=== PATIENT | female | born 1935 | race Caucasian/White ===

== ENCOUNTER 2017-02-06 09:22 | Emergency (ER) | payer MEDICARE, OTHER ==
[~2017-02-06] VITALS: Ht 157.5 cm; Wt 52.0 kg
--- NOTE | 2017-02-06 09:21 | ED.REPORT ---
HPI-Cardiac Arrest Date of Service Feb 06, 2017 ED Provider: Dr. Hewitt Pt is a 81 y/o female w/ a hx of bipolar, Alzheimer's, hyperlipidemia, presenting to the ED via EMS due to cardiac arrest which occurred about 30 minutes prior to arrival. The patient was given a breakfast which included peanut butter and apparently was found down and unresponsive 10-15 minutes later. EMS was called by her when he noticed that she was gagging on the peanut butter. Medics arrived to find her unresponsive and in PEA cardiac arrest and CPR was started. She received 10-12 minutes of CPR and 2 rounds of Epinephrine with return of circulation with heart rate about 120 bpm. She was intubated successfully on route without use of any paralytic or sedative medication. During the intubation, a considerable amount of peanut butter was suctioned from trachea. She arrives to the ED intubated and in critical condition. Health care directive obtained about 10 minutes after arrival indicates: DNR and DNI IF "I am diagnosed to be in a terminal condition or in a permanent unconscious condition". Nursing Notes Stated Complaint: POST CARDIAC ARREST Nursing Notes Reviewed: Yes Allergies: Coded Allergies: No Known Allergies (Verified , 08/07/16) Scheduled ([Vitamin D]) 1,000 IU PO DAILY Estradiol-Expunged Drug, Do Not Renew! (Estrace Vaginal-Expunged Drug, Do Not Renew!) 1 Gm Cr 1 GM PV 2 TIMES A WEEK Normal dose: 2-4 Gms Vaginally HS Ferrous Sulfate (Iron) 325 Mg Tablet 65 MG PO DAILY Iloperidone (Fanapt) 6 Mg Tablet 6 MG PO DAILY AT HS Levothyroxine (Levothyroxine) 112 Mcg Tablet 112 MCG PO DAILY MELATONIN/PYRIDOXINE-Expunged Drug, Do Not Re (MELATONIN-Expunged Drug, Do Not Renew!) 1 Each Tab.mphase 1 EACH PO HS MULTIVITAMIN-Expunged Drug, Do Not Renew! (MULTI VITAMIN -Expunged Drug, Do Not Renew!) 1 Each Tablet 1 EACH PO DAILY OXcarbazepine-Expunged Drug, Do Not Renew! (Trileptal-Expunged Drug, Do Not Renew!) 300 Mg Tablet 900 MG PO PM Omeprazole-Expunged Drug, Do Not Renew! (Omeprazole-Expunged Drug, Do Not Renew! ) 20 Mg Capcr 20 MG PO DAILY Ospemifene (Osphena) 60 Mg Tablet 60 MG PO DAILY Oxcarbazepine (Trileptal) 600 Mg Tablet 300 MG PO AM Quetiapine-Expunged Drug, Do Not Renew! (Seroquel XR-Expunged Drug, Do Not Renew !) 300 Mg Tab.sr.24h 750 MG PO HS Scheduled PRN Lorazepam-Expunged Drug, Do Not Renew! (Lorazepam-Expunged Drug, Do Not Renew!) 1 Mg Tablet 1 MG PO BID PRN PRN Naproxen Sod-Expunged Drug, Do Not Renew!! (Aleve-Expunged Drug,Do Not Renew!) 220 Mg Capsule 220 MG PO Q12 PRN PRN Miscellaneous Medications Ferrous Sulfate (Iron) 15 Mg Iron (75 Mg)/Ml Drops 15 MG PO General Time Seen by Provider: 09:22 Chief Complaint Respiratory arrest Down Time Prior to EMS: 1 - 20 min Total Time Arrest to Arrival: 21 - 40 min Context: Resuscitation: Initial rhythm PEA Hx Obtained From: EMS Unable to Obtain Hx: Patient condition Arrived By: Ambulance Onset Occurred: 16 - 30 minutes ago Symptom Duration: 1 - 15 minutes Progression Since Onset: Constant Past Medical History Past Medical History Hypothyroidism Hyperlipidemia GERD Bipolar type II Alzheimer's disease Family History Noncontributory Smoking History Unknown if Ever Smoker Social History Other Social History: Good social support, , Local resident Ambulatory Status Independent Review of Systems Unable to Obtain ROS Patient condition, Intubated Physical Exam Initial Vital Signs Vital Signs (First) Date Time Temp Pulse Resp B/P Pulse Ox O2 Delivery O2 Flow Rate FiO2 02/06/17 09:25 34.9 103 18 77/41 99 Mechanical Ventilator ET Tube Initial VS: Reviewed, Vital signs abnormal Respiratory / Chest: Atraumatic, Breath sounds = bilat Intubated and on ventilator Cardiovascular: Regular rhythm, Heart sounds NL, No gallop, No murmurs, No rubs Heart Rate / Rhythm: Positive: Tachycardia Abdomen: Atraumatic, Soft Head / Eyes: Atraumatic, Normocephalic Pupils fixed at 4 mm bilaterally ENT: Atraumatic, Airway patent Neck: Atraumatic, No swelling Upper Extremity / MS: Atraumatic, Inspection NL Lower Extremity / Pelvis / MS: Atraumatic, Inspection NL Skin: Atraumatic, No rash, Dry NEURO: Unresponsive with GCS of 3 PSYCH: Unable to assess Interpretation & Diagnostics Lab Results Interpretation Result Diagram: 02/06/17 0930 02/06/17 0930 Test 02/06/17 09:30 White Blood Count 21.3th/mm3 (3.8-10.1) Red Blood Count 3.12mil/mm3 (3.90-5.20) Hemoglobin 10.0g/dL (12.0-15.6) Hematocrit 30.6% (35.0-46.0) Mean Corpuscular Volume 98.1fL (81-100) Mean Corpuscular Hemoglobin 32.1pg (27.0-35.0) Mean Corpuscular Hemoglobin Concent 32.7% (32.0-37.0) Red Cell Distribution Width 12.7% (12.3-15.4) Platelet Count 327bil/L (150-400) Neutrophils (%) (Auto) 64.2% (40-74) Lymphocytes (%) (Auto) 26.3% (14-46) Monocytes (%) (Auto) 7.0% (4-12) Eosinophils (%) (Auto) 0.3% (0-5) Basophils (%) (Auto) 0.2% (0-3) Sodium Level 131mEq/L (134-144) Potassium Level 3.6mEq/L (3.5-5.2) Chloride Level 93mEq/L (97-108) Carbon Dioxide Level 17mmol/L (18-29) Blood Urea Nitrogen 20mg/dL (8-27) Creatinine 1.30mg/dL (0.57-1.00) Estimat Glomerular Filtration Rate 57mL/min (>59) Glucose Level 211mg/dL (60-99) Calcium Level 8.3mg/dL (8.5-10.1) Magnesium Level 2.4mg/dL (1.6-2.6) Total Bilirubin 0.4mg/dL (0.0-1.2) Aspartate Amino Transf (AST/SGOT) 39U/L (0-50) Alanine Aminotransferase (ALT/SGPT) 27U/L (0-32) Alkaline Phosphatase 119U/L (25-165) Troponin T 0.010ug/L (0.0-0.011) Total Protein 6.2g/dL (6.4-8.4) Albumin 3.0g/dL (3.4-5.0) ECG Interpretation ECG Interpretation: Sinus rhythm rate 93 Single PVC Low voltage No prior EKG available for comparison Time: 09:48 Interpreted by: ED physician Normal ECG Interpretation: No acute ischemic changes X-Ray Chest Interpretation Chest Xray Interpretation: FINDINGS: Surgical changes and devices: Transcutaneous cardiac pacer noted. NG tube traverses the NG junction. ET tube projects approximately 5.1 cm superior to the julio. Lungs and pleura: No pleural effusions or pneumothorax. Opacity noted in the medial aspect of the right upper lobe. Mediastinum: Mediastinal contours appear normal. Heart size is normal. Bones and chest wall: No suspicious bony lesions. Overlying soft tissues appear unremarkable. IMPRESSION: 1. Tubes and lines as described above. 2. Masslike opacity in the right upper lobe. Recommend standard two-view the chest when clinically feasible. Dictated by: Pebbles Avila MD, PhD on 02/06/2017 at 10:11 Approved by: Pebbles Avila MD, PhD on 02/06/2017 at 10:12 View: Portable, 1 view Interpretation / Wet Read by: Interpret - Radiologist CT Head Interpretation IMPRESSION: No acute intracranial disease process. Dictated by: Pebbles Avila MD, PhD on 02/06/2017 at 10:28 Approved by: Pebbles Avila MD, PhD on 02/06/2017 at 10:29 Study: Head CT no contrast Interpretation / Wet Read by: Interpret - Radiologist Re-Eval/Medical Decision Med Decision/Clinical Course 81-year-old female who presented after cardiac arrest. Patient reportedly choked on peanut butter and was down for 10-15 minutes. CPR was started by paramedics and resuscitated after approximately 10 minutes. On arrival patient was intubated and in sinus rhythm. She was unresponsive with fixed and dilated pupils. Discussion with family and initially was to proceed with full resuscitation. CT head showed no acute pathology. Cooling measures were started. Patient was resuscitated for quite some time case discussed again with family and they made a collective decision to withdraw care and extubate and placed on comfort measures. Patient shortly thereafter. No cardiac activity, pupils fixed and dilated, no breath sounds or respirations, unresponsive to pain. Time of 1034. Cause of is cardiac arrest. Secondary cause asphyxiation. Source of Hx: Old records, EMS Re-Evaluation/Progress #1: Time of Eval: 09:30 Re-Evaluation/Progress Note: Pt rechecked. Condition unchanged. Will order labs and imaging considering unknown code status and who cannot come to the ED. Re-Evaluation/Progress #2: Time of Eval: 09:33 Re-Evaluation/Progress Note: The [facility] called and I discussed plan of care. He will discuss with his son and call back. Re-Evaluation/Progress #3: Time of Eval: 09:40 Re-Evaluation/Progress Note: Pt rechecked. Will wait for to call back prior to central line. Re-Evaluation/Progress #4: Time of Eval: 10:08 Re-Evaluation/Progress Note: and family called back. After discussion about poor prognosis and likely severe anoxic brain injury, they would like us to withdraw life supporting care at this time. They are requesting comfort care at this time. I confirmed this plan with the and he agreed. He believes she would agree with the plan to withdraw care. Re-Evaluation/Progress #5: Time of Eval: 10:15 Re-Evaluation/Progress Note: Pt rechecked. She remains unresponsive to pain and voice. Pupils 2 mm bilaterally and minimally responsive. Re-Evaluation/Progress #6: Time of Eval: 10:21 Re-Evaluation/Progress Note: Pt rechecked. The patient was extubated. Re-Evaluation/Progress #7: Time of Eval: 10:29 Re-Evaluation/Progress Note: Becoming bradycardic. Entering junctional rhythm. Re-Evaluation/Progress #8: Time of Eval: 10:31 Re-Evaluation/Progress Note: The patient's adopted daughter arrived. Discussed case thus far. She confirms the plan for comfort care. Re-Evaluation/Progress #9: Time of Eval: 10:34 Re-Evaluation/Progress Note: Pt rechecked. 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 Pupils fixed and dilated. Unresponsive. No cardiac activity. No respirations observed for greater than 1 minute. No pulses. Time of called at 10:34. Counseled Regarding: Diagnosis, Lab results Discharge & Departure Impression: Primary Impression: Cardiac arrest Disposition: All VS Reviewed: Yes Condition: Referrals: Linda Garduno MD (PCP) Crit Care Except Billable Proc Time Spent: 105-134 minutes (125) Services Performed: Patient management by me, Time spent at bedside, Reviewing test results, Reviewing imaging, Discussing patient care, Documentation in record, Time with fam/surrogate (Phone) Scribe Attestation Portions of this note were transcribed by Juan Antonio Page. I, Dr. Hewitt personally performed the history, physical exam and medical decision-making; I reviewed and confirmed the accuracy of the information in the transcribed note. Signed by Sona Puentes, 02/06/17 - 1000 copies to: Linda Garduno MD, Ben M MD Feb 06, 2017 09:21 JUAN ANTONIO PAGE Feb 06, 2017 09:30
[~2017-02-06 09:22] MED LIST: EST42.5C PV; FERR15DR23 PO; FERR325T39 PO; ILOP6TAB PO; LEVO112T4 PO; LORA1TAB PO; MELA1TAB21 PO; MULT-1018 PO; NAPR220C11 PO; OSPE60TA2 PO; OXCA600T3 PO; PRI20 PO; SERXR300 PO; Vitamin D PO; [UNRECOGNIZED DRUG - CODE] PO
[2017-02-06 09:25] VITALS: BP 77/41; PULSE 103; RESP 18; O2SAT 99
[2017-02-06] MEDS ORDERED: 0.9% Sodium Chloride 1,000 ML IV ONE (09:27)
[2017-02-06 09:41] LABS: BASOPHILS % (AUTO) 0.2 % (0-3); EOSINOPHILS % (AUTO) 0.3 % (0-5); Mean Corpuscular Hemoglobin 32.1 pg (27.0-35.0); Mean Corpuscular Volume 98.1 fL (81-100); NEUTROPHILS % (AUTO) 64.2 % (40-74); Platelet Count 327 bil/L (150-400)
[2017-02-06 09:48] VITALS: BP 103/58; PULSE 94; RESP 20; O2SAT 99
[2017-02-06 09:50] LABS: TROPONIN T 0.01 ug/L (0.0-0.011)
[2017-02-06 10:01] LABS: Magnesium 2.4 mg/dL (1.6-2.6)
--- NOTE | 2017-02-06 10:14 | DRSVH ---
PROCEDURE: X-RAY CHEST ONE VIEW, PORTABLE ([id number]) INDICATIONS: cardiac arrest TECHNIQUE: One view of the chest was acquired. COMPARISON: [facility], , CHEST 1VW (PORTABLE), 10/09/2011, 14:36. FINDINGS: Surgical changes and devices: Transcutaneous cardiac pacer noted. NG tube traverses the NG junction. ET tube projects approximately 5.1 cm superior to the julio. Lungs and pleura: No pleural effusions or pneumothorax. Opacity noted in the medial aspect of the ri ght upper lobe. Mediastinum: Mediastinal contours appear normal. Heart size is normal. Bones and chest wall: No suspicious bony lesions. Overlying soft tissues appear unremarkable. IMPRESSION: 1. Tubes and lines as described above. 2. Masslike opacity in the right upper lobe. Recommend standard two-view the chest when clinically fe asible. Dictated by: Pebbles Avila MD, PhD on 02/06/2017 at 10:11 Approved by: Pebbles Avila MD, PhD on 02/06/2017 at 10:12
[2017-02-06 10:19] VITALS: BP 99/49; PULSE 87; RESP 20; O2SAT 98
--- NOTE | 2017-02-06 10:31 | DRSVH ---
PROCEDURE: CT BRAIN WITHOUT CONTRAST ([id number]) INDICATIONS: found down, cardiac arrest TECHNIQUE: Noncontrast 4.5 mm thick angled axial sections acquired from the foramen magnum to the vertex, with c oronal reformats. COMPARISON: None. FINDINGS: Image quality: Excellent. CSF spaces: Basal cisterns are patent. No extra-axial fluid collections. Ventricles are normal in size and shape. Brain: No midline shift. No intracranial masses or hemorrhage. Aggarwal-white matter interface is norm al. Skull and face: Calvarium and visualized facial bones are intact, without suspicious lesions. Sinuses: Visualized sinuses and mastoids are clear. IMPRESSION: No acute intracranial disease process. Dictated by: Pebbles Avila MD, PhD on 02/06/2017 at 10:28 Approved by: Pebbles Avila MD, PhD on 02/06/2017 at 10:29
[2017-02-06 10:36] VITALS: O2SAT 100
--- NOTE | 2017-02-06 15:25 | NUR ---
ED WILDLIFE REFUGE MANAGER Note D/A: Pt presented to the ED post cardiac arrest. Per Pt's family request, Pt was placed on comfort care and . WILDLIFE REFUGE MANAGER requested to provide support to Pt's family. P: WILDLIFE REFUGE MANAGER met with Pt's friend January and with Pt's Shriaz and son Juan. Pt's son indicated that no home had been chosen and WILDLIFE REFUGE MANAGER explained how to notify the hospital once that decision had been made. WILDLIFE REFUGE MANAGER provided emotional support to Pt's family until they were ready to leave the ED. CHRIS Walton, AAC
== END 2017-02-06 11:36 | disposition expired ==
LOC: SED 09:22
DX: I46.9 Cardiac arrest, cause unspecified (principal); E78.5 Hyperlipidemia, unspecified; E03.9 Hypothyroidism, unspecified; K21.9 Gastro-esophageal reflux disease without esophagitis; Z79.899 Other long term (current) drug therapy
CPT/HCPCS: 36415; 43753; 51702; 70450; 71010; 80053; 83735; 84484; 85025; 93005; 94002; 94799; 96360; 99291; 99292; J7030